=== PATIENT | male | born 1955 | race Caucasian/White ===

== ENCOUNTER → 2018-02-14 | Outpatient (CLI) | payer BC | LOC: GMAM 11:22 | PROVIDERS: ATTEND Family Medicine | DX: Z12.5 Encounter for screening for malignant neoplasm of prostate (principal) ==

== ENCOUNTER → 2018-03-07 | Outpatient (CLI) | payer BC | LOC: SL 20:05 | PROVIDERS: ATTEND Family Medicine | DX: G47.33 Obstructive sleep apnea (adult) (pediatric) (principal); G47.10 Hypersomnia, unspecified; I10 Essential (primary) hypertension ==

== ENCOUNTER → 2019-01-08 | Outpatient (CLI) | payer BC | LOC: GMAM 10:23 | PROVIDERS: ATTEND Family Medicine | DX: E29.9 Testicular dysfunction, unspecified (principal); E55.9 Vitamin D deficiency, unspecified; Z12.5 Encounter for screening for malignant neoplasm of prostate ==

== ENCOUNTER → 2019-07-27 | Outpatient (CLI) | payer BC | LOC: GMAM 12:26 | PROVIDERS: ATTEND Family Medicine | DX: Z00.00 Encounter for general adult medical examination without abnormal findings (principal); C61 Malignant neoplasm of prostate; E29.9 Testicular dysfunction, unspecified; E55.9 Vitamin D deficiency, unspecified ==

== ENCOUNTER → 2020-02-13 | Outpatient (CLI) | payer BC | LOC: GMAM 11:23 | PROVIDERS: ATTEND Family Medicine | DX: Z12.5 Encounter for screening for malignant neoplasm of prostate (principal); E78.2 Mixed hyperlipidemia; I10 Essential (primary) hypertension; E29.9 Testicular dysfunction, unspecified ==